=== PATIENT | female | born 1975 | race Caucasian/White ===

== ENCOUNTER 2019-07-15 10:27 | Emergency (ER) | payer BC ==
[2019-07-15] MEDS ORDERED: TYLENOL 325 MG PO ONE (10:54)
--- NOTE | 2019-07-15 11:00 | ERPHSYRPT ---
- History of Present Illness Time Seen by Provider: 07/15/19 10:40 Source: patient Exam Limitations: no limitations Patient Subjective Stated Complaint: Pt reports a window broke while she was closing with resulting in multiple cuts to the 3rd digit of the right hand Triage Nursing Assessment: Pt alert et oriented x3. roughly 1cm laceration noted to the anterior aspect of the 3rd digit. No noted active bleeding at this time. Pt denied respiratory distress/chest pain. Denied nausea/vomiting. No noted focal neurological deficits. Skin pink/warm/dry Physician History: Patient is a 44yo F who presents to ED with injury to her right long finger. She states her kitchen window glass broke causing her finger injury. Injury occurred just [employer]. Tetanus UTD. No other injuries. NO other c/o. Pain is described as an ache that is well localized. No radiation. Pain is mild to moderate in intensity. Pain worse with movement and palpation . Pain improves with rest. NO associated symptomology. Occurred: just prior to arrival Quality: aching Severity of Pain-Max: moderate Severity of Pain-Current: mild Extremities Pain Location: 3rd finger: right (distal to DIP. ) Modifying Factors: Improves With: movement Associated Symptoms: none Allergies/Adverse Reactions: ketorolac [From Toradol] Allergy (Severe, Verified 07/15/19 10:44) Shortness of Breath Home Medications: Lisinopril 10 mg [Zestril 10 MG] 10 mg PO DAILY 07/15/19 [History] Methimazole [Northyx] 0.5 tablet PO 07/15/19 [History] Hx Tetanus, Diphtheria Vaccination/Date Given: Yes Hx Influenza Vaccination/Date Given: Yes Immunizations Up to Date: Yes Travel Risk - International Travel Have you traveled outside of the country in past 3 weeks: No Have you or anyone close to you been diagnosed with or: No Do your reside in a community with a known COVID-19 case?: Yes If Yes where:: [facility] - Coronavirus Screening Has patient experienced Coronavirus symptoms: No - Review of Systems Constitutional: No Fever, No Chills Eyes: No Symptoms Ears, Nose, & Throat: No Symptoms Respiratory: No Symptoms, No Cough, No Dyspnea Cardiac: No Symptoms, No Chest Pain, No Edema, No Syncope Abdominal/Gastrointestinal: No Symptoms, No Abdominal Pain, No Nausea, No Vomiting, No Diarrhea Genitourinary Symptoms: No Symptoms, No Dysuria Musculoskeletal: No Symptoms, No Back Pain, No Neck Pain Skin: No Symptoms, No Rash Neurological: No Symptoms, No Dizziness, No Focal Weakness, No Sensory Changes Psychological: No Symptoms Endocrine: No Symptoms All Other Systems: Reviewed and Negative - Past Medical History Neurological History: No Pertinent History Cardiac History: Hypertension Respiratory History: No Pertinent History Endocrine Medical History: No Pertinent History Musculoskeletal History: Arthritis, Rheumatoid Arthritis - Past Surgical History Female Surgical History: Other Other Surgical History: Ablation done October 2018 - Social History Smoking Status: Never smoker Exposure to second hand smoke: No Drug Use: none Patient Lives Alone: No (Lives with and two children) - Female History Hx Now: No (Ablation done october of 2018) - Nursing Vital Signs Nursing Vital Signs: Initial Vital Signs Temperature 98.2 F 07/15/19 10:28 Pulse Rate 64 07/15/19 10:28 Respiratory Rate 18 07/15/19 10:28 Blood Pressure 135/86 07/15/19 10:28 O2 Sat by Pulse Oximetry 99 07/15/19 10:28 Pain Scale Pain Intensity 4 - Physical Exam General Appearance: alert Eyes, Ears, Nose, Throat Exam: moist mucous membranes Neck Exam: non-tender, supple Cardiovascular/Respiratory Exam: chest non-tender, regular rate/rhythm, no respiratory distress Abdominal Exam: non-tender, No guarding Back Exam: normal inspection, No vertebral tenderness Shoulder Exam: normal inspection Elbow/Forearm Exam: normal inspection Wrist Exam: normal inspection Hand Exam: normal ROM (Nl tendon function. NVI distally. Compartments are soft. CR <2 sec. ), soft tissue tenderness (Patient has a superficial skin avulsion injury to the pad of Rt. LF measuring 5mm. 3mm superficial laceration just proximal to nailplate. No indication for repair or antibiotic therapy. Tetanus UTD. Local wound care only. NO subungual hematoma. ), No nail injury Neuro/Tendon Exam: normal sensation, normal motor functions Mental Status Exam: alert, oriented x 3, cooperative Skin Exam: normal color, warm, dry SpO2 Interpretation: normal SpO2: 99 O2 Delivery: Room Air - Course Nursing assessment & vital signs reviewed: No - Radiology Exams Hand X-ray Interpretation: Teleradiologist Report (NO fracture or dislocation. ) Ordered Tests: Active Orders 24 hr Category Date Time Status HAND (MINIMUM 3 VIEWS) Stat Exams 07/15/19 10:50 Ordered - Progress Progress: improved Progress Note: 07/15/19 11:07 Patient reassessed. she is well. Local wound care to involved digit. No further intervention indicated. Counseled pt/family regarding: diagnosis, need for follow-up, rad results - Departure Departure Disposition: Home Clinical Impression: Finger laceration Condition: Stable Critical Care Time: No Referrals: Shreya Carrington NP [Primary Care Provider] - Instructions: Wound Care (DC) Additional Instructions: Discharge/Care Plan CHRISTY CRISTINA was seen on 07/15/19 in the Emergency Room. The patient was counseled regarding Diagnosis,Lab results, Imaging studies, need for follow up and when to return to the Emergency Room. Prescriptions given: Discharge Note I have spoken with the patient and/or caregivers. I have explained the patient' s condition, diagnosis and treatment plan based on the information available to me at this time. I have answered the patient's and/or caregiver's questions and addressed any concerns. The patient and/or caregivers have as good understanding of the patient's diagnosis, condition and treatment plan as can be expected at this point. The vital signs have been stable. The patient's condition is stable and appropriate for discharge from the emergency department. The patient will pursue further outpatient evaluation with the primary care physician or other designated or consulting physician as outlined in the discharge instructions. The patient and/or caregivers are agreeable to this plan of care and follow-up instructions have been explained in detail. The patient and/or caregivers have received these instruction. The patient/and or caregivers are aware that any significant change in condition or worsening of symptoms should prompt an immediate return to this or the closest emergency department or call 911.
[2019-07-15] MEDS ORDERED: BACIGUENT PACKET ONE (11:06)
[2019-07-15] MEDS ORDERED: TYLENOL 325 MG ONE (11:06)
--- NOTE | 2019-07-15 11:32 | XRAY ---
Indication: 3rd digit pain following injury. Comparison: None 3 view right hand obtained. No bony, articular, or soft tissue abnormalities.
[2019-07-15 11:35] VITALS: BP 159/75; PULSE 94; O2SAT 98
[2019-07-16] MEDS ORDERED: BACIGUENT 30 GM TP SCH (10:00)
== END 2019-07-15 11:51 | disposition home or self-care (01) ==
LOC: ED 10:27
DX: S61.212A Laceration without foreign body of right middle finger without damage to nail, initial encounter (principal); W25.XXXA Contact with sharp glass, initial encounter; Y93.89 Activity, other specified; Y92.89 Other specified places as the place of occurrence of the external cause; Y93.9 Activity, unspecified; Y92.000 Kitchen of unspecified non-institutional (private) residence as the place of occurrence of the external cause; I10 Essential (primary) hypertension; M06.9 Rheumatoid arthritis, unspecified
CPT/HCPCS: 73130; 99283; A9270-GY

== ENCOUNTER 2024-04-13 18:13 | Emergency (ER) | payer BC ==
[2024-04-13 18:27] VITALS: TEMP 97; O2SAT 98
--- NOTE | 2024-04-13 18:42 | ERPHSYRPT ---
- History of Present Illness Time Seen by Provider: 04/13/24 18:25 Source: patient Exam Limitations: no limitations Patient Subjective Stated Complaint: Gynecological-thinks she has a uterine prolapse Triage Nursing Assessment: Patient ambulated back to ED and transferred self to bed. Patient A+O X 3. Patient's skin pink, warm and dry. Patient states she went to restroom earlier and had some discomfort when wiping and feels like her uterus is prolapsed. Patient denies pain or discomfort currently, but states at time the area hurts. No bleeding noted. Physician History: 49-year-old female presents to emergency department for evaluation. Patient observed a which she believes is a prolapsed uterus protruding through her vagina when she sits on the toilet. No pain. No nausea no vomiting no trauma no fever. No urinary complaints. No hematuria no dysuria no frequency or urgency. Patient otherwise asymptomatic. Patient denies experiencing or observing this finding in the past. Patient voices no other complaints or concerns at this time. Portions of this note were created with voice recognition technology. There may be grammatical, spelling, punctuation or sound alike errors Timing/Duration: today Severity: moderate Modifying Factors: Improves With: nothing Associated Symptoms: denies symptoms Allergies/Adverse Reactions: ketorolac [From Toradol] Allergy (Severe, Verified 04/13/24 18:19) Shortness of Breath Home Medications: Lisinopril 10 mg [Zestril 10 MG] 10 mg PO DAILY 07/15/19 [History] Hx Tetanus, Diphtheria Vaccination/Date Given: Yes Hx Influenza Vaccination/Date Given: No Hx Pneumococcal Vaccination/Date Given: No Immunizations Up to Date: Yes Travel Risk - International Travel Have you traveled outside of the country in past 3 weeks: No - Emerging Infectious Disease Are you exhibiting symptoms associated with any current EIDs: No - Review of Systems Constitutional: No Symptoms, No Fever, No Chills Eyes: No Symptoms Ears, Nose, & Throat: No Symptoms Respiratory: No Symptoms, No Cough, No Dyspnea Cardiac: No Symptoms, No Chest Pain, No Edema, No Syncope Abdominal/Gastrointestinal: No Symptoms, No Abdominal Pain, No Nausea, No Vomiting, No Diarrhea Genitourinary Symptoms: No Symptoms, No Dysuria Musculoskeletal: No Symptoms, No Back Pain, No Neck Pain Skin: No Symptoms, No Rash Neurological: No Symptoms, No Dizziness, No Focal Weakness, No Sensory Changes Psychological: No Symptoms Endocrine: No Symptoms Hematologic/Lymphatic: No Symptoms Immunological/Allergic: No Symptoms All Other Systems: Reviewed and Negative - Past Medical History Pertinent Past Medical History: Yes Neurological History: No Pertinent History Cardiac History: High Cholesterol, Hypertension, Other Respiratory History: Other Endocrine Medical History: Other Musculoskeletal History: Rheumatoid Arthritis Other Medical History: Pre-Diabetic, hx of thyroid but values are stabilized and no longer being treated for, COVID-19 x1, heart murmur, R foot sx, R carpal tunnel release, tubal ligation, ablasion, cholecystectomy - Past Surgical History Past Surgical History: Yes Female Surgical History: Other Other Surgical History: Ablation done October 2018 - Female History Hx Last Menstrual Period: ablation Hx Now: No - Social History Smoking Status: Never smoker Exposure to second hand smoke: No Drug Use: none Patient Lives Alone: No (Lives with and two children) - Social Determinants of Health Will the patient participate in the screening: Yes Do you worry about a steady place to live?: No Do you have any problems with any of the following?: No known problems In the past 12 months,have you had to go without utilities?: No Transportation Issues: No Has anyone in your support network made you feel unsafe?: No Have you or anyone in your house had to go without enough: No - Nursing Vital Signs Nursing Vital Signs: Initial Vital Signs Temperature 97.0 F 04/13/24 18:21 Pulse Rate 89 04/13/24 18:21 Respiratory Rate 20 04/13/24 18:21 Blood Pressure 167/112 04/13/24 18:21 O2 Sat by Pulse Oximetry 98 04/13/24 18:21 Pain Scale Pain Intensity 0 - Physical Exam General Appearance: no apparent distress, alert Eye Exam: PERRL/EOMI, eyes nml inspection Ears, Nose, Throat Exam: normal ENT inspection, moist mucous membranes Neck Exam: normal inspection, full range of motion Respiratory Exam: normal breath sounds, airway intact, No respiratory distress Cardiovascular Exam: regular rate/rhythm Gastrointestinal/Abdomen Exam: soft, normal bowel sounds, No tenderness, No mass Pelvic Exam: normal external exam, other (Normal exam in the lithotomy position. However patient sat on the toilet to assume the position in which she observed the abnormality. In the seated position the posterior vaginal wall protrudes to the vaginal opening. However it auto reduces.) Back Exam: normal inspection, normal range of motion, No CVA tenderness, No vertebral tenderness Extremity Exam: normal inspection, normal range of motion, pelvis stable Neurologic Exam: alert, oriented x 3, cooperative, normal mood/affect, sensation nml, No motor deficits Skin Exam: normal color, warm, dry, No rash Lymphatic Exam: No adenopathy SpO2 Interpretation: normal SpO2: 98 O2 Delivery: Room Air - Course Nursing assessment & vital signs reviewed: Yes - Progress Progress: improved Progress Note: 49-year-old female presents to our ED for an evaluation of suspected uterine prolapse. Physical exam reveals a rectocele. Case discussed with at 6:40 PM. He advised that it is likely a rectocele. He states he is able to repair this. The office is closed. Nurse Fer will call in a morning to schedule an appointment. Patient otherwise asymptomatic at this time. No indication for further workup will discharge home. Patient voices no other complaints or concerns at this time. She agrees to follow-up as discussed. Portions of this note were created with voice recognition technology. There may be grammatical, spelling, punctuation or sound alike errors Complexity of problem addressed is moderate acute complicated no critical care time. Complex of data reviewed analyzes none. No specialized testing ordered. Diagnosis made based on history and physical exam. Risk of complication and or risk of morbidity/mortality of patient management is low. Vital stable. Time spent to discharge patient is approximately 10 minutes. Plan of care established for shared decision making. No social determinants of health present to impede follow-up. Portions of this note were created with voice recognition technology. There may be grammatical, spelling, punctuation or sound alike errors 04/13/24 18:55 Counseled pt/family regarding: diagnosis, need for follow-up - Departure Departure Disposition: Home Clinical Impression: Rectocele Condition: Stable Critical Care Time: No Referrals: ASCENCION TAYLOR PA [Primary Care Provider] - Follow up/PCP as directed NINA DICKSON DO [ACTIVE STAFF] - Follow up/PCP as directed Instructions: Pelvic exam Additional Instructions: Discharge/Care Plan CHRISTY CRISTINA was seen on 04/13/24 in the Emergency Room. The patient was counseled regarding Diagnosis,Lab results, Imaging studies, need for follow up and when to return to the Emergency Room. Prescriptions given: Discharge Note I have spoken with the patient and/or caregivers. I have explained the patient's condition, diagnosis and treatment plan based on the information available to me at this time. I have answered the patient's and/or caregiver's questions and addressed any concerns. The patient and/or caregivers have as good understanding of the patient's diagnosis, condition and treatment plan as can be expected at this point. The vital signs have been stable. The patient's condition is stable and appropriate for discharge from the emergency department. The patient will pursue further outpatient evaluation with the primary care physician or other designated or consulting physician as outlined in the discharge instructions. The patient and/or caregivers are agreeable to this plan of care and follow-up instructions have been explained in detail. The patient and/or caregivers have received these instruction. The patient/and or caregivers are aware that any significant change in condition or worsening of symptoms should prompt an immediate return to this or the closest emergency department or call 911.
[2024-04-13 18:47] VITALS: BP 159/91; PULSE 72; RESP 18
== END 2024-04-13 18:55 | disposition home or self-care (01) ==
LOC: ED 18:13
DX: N81.6 Rectocele (principal); I10 Essential (primary) hypertension; Z79.899 Other long term (current) drug therapy
CPT/HCPCS: 99281